=== PATIENT | female | born 1955 | race Caucasian/White ===

== ENCOUNTER 2017-04-08 05:29 | Day surgery (SDC) | payer BC ==
[~2017-04-08] VITALS: Ht 165.1 cm; Wt 69.9 kg
[~2017-04-08 05:29] MED LIST: PROZAC 20MG20 MG PO; SEROQUEL50 MG PO; ULTRAM 50MG TAB50 MG PO; XANAX 0.5MG0.5 MG PO
[2017-04-08 05:58] VITALS: BP 128/53; PULSE 84; TEMP 97.6
[2017-04-08] MEDS ORDERED: XANAX .25M0.25 MG/TA PO (06:02)
[2017-04-08] MEDS ORDERED: B-121000 MCG PO (06:03)
[2017-04-08] MEDS ORDERED: MULTIPLE VITAMI1 TA5 PO (06:03)
[2017-04-08] MEDS ORDERED: VITAMIN D31000 I1 PO (06:03)
[2017-04-08] MEDS ORDERED: NORCO 325 MG-51 TAB PO (06:04)
[2017-04-08 08:15] VITALS: BP 116/62; PULSE 78; TEMP 97.4
[2017-04-08 08:30] VITALS: BP 125/64; PULSE 76
[2017-04-08] MEDS ORDERED: PERCOCET 325 MG1 TA2 PO (08:40)
[2017-04-08 08:45] VITALS: BP 125/72; PULSE 78
[2017-04-08 09:00] VITALS: BP 136/65; PULSE 74
== END 2017-04-08 09:23 | disposition home or self-care (01) ==
LOC: SDCO 05:29
DX: M20.22 Hallux rigidus, left foot (principal); Z88.0 Allergy status to penicillin; Z88.6 Allergy status to analgesic agent; Z79.52 Long term (current) use of systemic steroids; Z90.49 Acquired absence of other specified parts of digestive tract
CPT/HCPCS: J0690; J1100; J1885; J2250; J2405; J2704; J2765; J3010; J3301; J7120